=== PATIENT | female | born 1985 | race Caucasian/White ===

== ENCOUNTER → 2021-02-27 10:06 | Observation (INO) ==
[~2021-02-27 10:06] MED LIST: *HR* HYDROcodone/Acet 5/325 mg TABLET PO PRN; *HR* HYDROmorphone (PF) 1 MG/ML SYRINGE IVP PRN; Ondansetron 4 MG/2 ML VIAL IVP PRN; Ringers Solution, Lactated 1,000 ML IVC SCH
== END | disposition home or self-care (01) ==
LOC: 1NENULAB
PROVIDERS: ADMIT Student in an Organized Health Care Education/Training Program; ATTEND Student in an Organized Health Care Education/Training Program

== ENCOUNTER 2021-04-30 05:45 | Inpatient (IN) ==
[2021-05-02] MEDS ORDERED: Famotidine 20 MG/2 ML VIAL IVP ONE (12:41)
[2021-05-02] MEDS ORDERED: Metoclopramide 10 MG/2 ML VIAL IVP ONE (12:41)
[2021-05-02] MEDS ORDERED: Azithromycin 500 MG in 0.9 % Sodium Chloride 250 ML IVPB PRN (12:41)
[2021-05-02] MEDS ORDERED: Ringers Solution, Lactated 1,000 ML IVC SCH ×2 (12:45→20:43)
[2021-05-02] MEDS ORDERED: Oxytocin 20 units/ LR 1000 mL 20 UNIT/1,000 ML BAG IVC SCH ×3 (12:45→20:43)
[2021-05-02 14:13] LABS: Basophils % 0.1 %; Eosinophils % 0.1 %; Hematocrit 34.4 % (35.3-44.9); Hemoglobin 11.4 g/dL (11.5-15.4); Immature Granulocytes % 0.4 % (0-4); Lymphocytes # 1.5 K/mcL (0.6-4.6); Lymphocytes % 19.3 %; Mean Corpuscular HGB Conc 33.1 g/dL (31.6-35.5); Mean Corpuscular Hemoglobin 27.9 pg (28.0-33.3); Mean Corpuscular Volume 84.3 fL (83.0-100.0); Mean Platelet Volume 10.9 fL (9.4-12.4); Monocytes # 0.6 K/mcL (0.0-1.3); Monocytes % 8.2 %; Neutrophils # 5.6 K/mcL (1.6-8.9); Platelet Count 199 K/mcL (140-400); Red Blood Count 4.08 M/mcL (3.82-4.97); Red Cell Distribution Width 13.5 % (11.5-14.5); Segmented Neutrophils % 71.9 %; White Blood Count 7.8 K/mcL (4.3-11.1)
[2021-05-02 14:26] LABS: Influenza A PCR Negative (Negative); Influenza B PCR Negative (Negative); Resp. Syncytial Virus PCR Negative (Negative)
[2021-05-02 14:29] LABS: SARS-CoV-2 by PCR (In House) Negative (Negative)
[2021-05-02 14:39] LABS: Amphetamine Screen,Urine Negative ng/mL (Cutoff=1000); Barbiturate Screen,Urine Negative ng/mL (Cutoff=200); Benzodiazepines Screen,Urine Negative ng/mL (Cutoff=200); Cannabinoid Screen,Urine Negative ng/mL (Cutoff = 50); Cocaine Screen,Urine Negative ng/mL (Cutoff= 300); Opiate Screen,Urine Negative ng/mL (Cutoff=300); Phencyclidine Screen,Urine Negative ng/mL (Cutoff=25)
[2021-05-02] MEDS ORDERED: *HR* Morphine Sulfate/PF 10 MG/10 ML AMPUL ONE (17:08)
[2021-05-02] MEDS ORDERED: Ondansetron 4 MG/2 ML VIAL ONE (17:19)
[2021-05-02] MEDS ORDERED: EPHEDrine 50 MG/ML VIAL ONE (17:22)
[2021-05-02] MEDS ORDERED: *HR* FentaNYL (PF) 100 MCG/2 ML VIAL ONE (17:33)
[2021-05-02] MEDS ORDERED: Acetaminophen IV 1,000 MG/100 ML BAG IVPB ONE (18:02)
[2021-05-02] MEDS ORDERED: Naloxone 0.4 MG/ML INJ IVP PRN (18:02)
[2021-05-02] MEDS ORDERED: *HR* HYDROMORPHONE 2 MG/ML VIAL ONE (20:00)
[2021-05-02] MEDS ORDERED: Rho Immune Globulin 1,500 UNIT SYRINGE IM ONE (20:43)
[2021-05-02] MEDS ORDERED: Ondansetron 4 MG/2 ML VIAL IVP PRN (20:43)
[2021-05-02] MEDS ORDERED: Metoclopramide 10 MG/2 ML VIAL IVP PRN (20:43)
[2021-05-02] MEDS: Ibuprofen 600 MG TABLET PO SCH (21:04)
[2021-05-03] MEDS: Acetaminophen 325 MG TABLET PO SCH ×3 (00:05→20:20)
[2021-05-03] MEDS: Ibuprofen 600 MG TABLET PO SCH ×3 (08:07→22:03)
[2021-05-03] MEDS: Simethicone 80 MG TAB.CHEW PO PRN ×2 (08:08→16:15)
[2021-05-03] MEDS: Prenatal Vit/FA 1 EACH TABLET PO SCH (08:08)
[2021-05-03 10:36] LABS: Basophils % 0.1 %; Hematocrit 29.9 % (35.3-44.9); Immature Granulocytes % 0.4 % (0-4); Lymphocytes # 1.4 K/mcL (0.6-4.6); Lymphocytes % 12.2 %; Mean Corpuscular HGB Conc 33.4 g/dL (31.6-35.5); Mean Corpuscular Hemoglobin 28.5 pg (28.0-33.3); Mean Corpuscular Volume 85.2 fL (83.0-100.0); Mean Platelet Volume 10.9 fL (9.4-12.4); Monocytes # 0.7 K/mcL (0.0-1.3); Monocytes % 6.2 %; Platelet Count 202 K/mcL (140-400); Red Blood Count 3.51 M/mcL (3.82-4.97); Red Cell Distribution Width 13.7 % (11.5-14.5); Segmented Neutrophils % 81.1 %; White Blood Count 11.8 K/mcL (4.3-11.1)
[2021-05-03 10:38] LABS: Neutrophils # 9.6 K/mcL (1.6-8.9)
[2021-05-03] MEDS: *HR* OxyCODONE Immed Rel 5 MG TABLET PO PRN ×2 (12:48→20:19)
[2021-05-04] MEDS: *HR* OxyCODONE Immed Rel 5 MG TABLET PO PRN ×3 (01:19→09:36)
[2021-05-04] MEDS: Acetaminophen 325 MG TABLET PO SCH ×2 (03:30→09:30)
[2021-05-04] MEDS: Ibuprofen 600 MG TABLET PO SCH (05:34)
[2021-05-04] MEDS: Prenatal Vit/FA 1 EACH TABLET PO SCH (08:01)
[2021-05-04 08:05] VITALS: BP 124/78; PULSE 85; TEMP 98.6; O2SAT 98
== END 2021-05-04 10:59 | disposition home or self-care (01) | DRG 788 ==
LOC: 1NENULAB 05-02 12:34 → 1NENUOBS 05-02 20:28
PROVIDERS: ADMIT Student in an Organized Health Care Education/Training Program; ATTEND Student in an Organized Health Care Education/Training Program